=== PATIENT | male | born 1975 | race African-American/Black ===

== ENCOUNTER 2018-04-30 19:56 | Emergency (ER) | payer MEDICAID ==
[~2018-04-30] VITALS: Ht 180.3 cm; Wt 76.7 kg
--- NOTE | 2018-04-30 20:21 | Emergency Room Report ---
History of Present Illness General Chief Complaint: Pain Source: Caregiver Present Illness HPI 42-year-old male presents to the emergency department for demonstrating pain in the left foot while walking times one day. She presents with caregiver as he has developmental delay and is nonverbal. She has not received medication for his symptoms at this time no known fevers. reports Open wound to the lateral left ankle where caregiver states that he scratches often. History of present illness and ROS are limited due to patient mental status. Allergies: Coded Allergies: No Known Allergies (Unverified , 04/30/18) Patient History Past Medical History: see triage record Past Surgical History: none Pertinent Family History: none Reviewed Nursing Documentation: PMH: Agreed; PSxH: Agreed Nursing Documentation-PMH Past Medical History: No Stated History Review of Systems All Other Systems: limited - nonverbal, pt. AMS Physical Exam Vital Signs Date Time Temp Pulse Resp B/P (MAP) Pulse Ox O2 Delivery O2 Flow Rate FiO2 04/30/18 20:07 98.1 117 120/72 95 Room Air 98.1 Sp02 EP Interpretation: reviewed, normal General Appearance: no apparent distress, alert, GCS 15, non-toxic Head: normocephalic, atraumatic Eyes: bilateral eye normal inspection, bilateral eye PERRL ENT: hearing grossly normal, normal voice Neck: full range of motion Respiratory: chest non-tender, lungs clear, normal breath sounds, speaking full sentences Cardiovascular #1: regular rate, rhythm, no edema Musculoskeletal: back normal, normal range of motion, inflammation, tender - Lateral left foot, erythema, and mild swelling, scabbed circular wound noted. Neurologic: alert, oriented x3, responsive, motor strength/tone normal, sensory intact, speech normal, other - compensatory gait, grossly normal Psychiatric: judgement/insight normal Skin: warm/dry, well hydrated, other - scabbed old appearing circular wound on the left lateral ankle, with some erythema and warmth. Medical Decision Making PA Attestation Dr. dow is my supervising Physician whom patient management has been discussed with. Diagnostic Impression: Primary Impression: Cellulitis of ankle ER Course 42-year-old male presents to the emergency department for demonstrating pain in the left foot while walking times one day. She presents with caregiver as he has developmental delay and is nonverbal. She has not received medication for his symptoms at this time no known fevers. reports Open wound to the lateral left ankle where caregiver states that he scratches often. History of present illness and ROS are limited due to patient mental status. Ddx considered but are not limited to Fracture, dislocation, contusion, Sprain/ Strain/Spasm, cellulitis, abscess. Vital signs: are WNL, pt. is afebrile H&PE are most consistent with musculoskeletal injury will perform imaging to r/ o fractures/dislocations. ORDERS: - X-ray's Left FOOT and ANKLE - negative for fx, Dislocation, or significant soft tissue injury, per preliminary read in ED, and signed by ISIDRO Chambers , my supervising physician has reviewed, and agrees with my interpretation. ED INTERVENTIONS: - [ ] DISCHARGE: At this time pt. is stable for d/c to home. Will provide printed patient care instructions, and any necessary prescriptions. Care plan and follow up instructions have been discussed with the patient prior to discharge. Other X-Ray Diagnostic Results Other X-Ray Diagnostic Results #1: X-Ray ordered: Left foot # of Views/Limited Vs Complete: 3 View Indication: Pain EP Interpretation: Yes ISIDRO Xray: Interpretation reviewed, by supervising MD, and agrees with findings. Interpretation: no dislocation, no soft tissue swelling, no fractures Impression: No acute disease Electronically Signed by: Lilli Chambers PA-C Other X-Ray Diagnostic Results #2: X-Ray ordered: Left Ankle # of Views/Limited Vs Complete: 3 View Indication: Pain EP Interpretation: Yes ISIDRO Xray: Interpretation reviewed, by supervising MD, and agrees with findings. Interpretation: no dislocation, no soft tissue swelling, no fractures Impression: No acute disease Electronically Signed by: Lilli Chambers PA-C Last Vital Signs Date Time Temp Pulse Resp B/P (MAP) Pulse Ox O2 Delivery O2 Flow Rate FiO2 04/30/18 20:07 98.1 117 120/72 95 Room Air 98.1 Disposition: HOME, SELF-CARE Condition: Stable Scripts Acetaminophen* (TYLENOL EXTRA STRENGTH*) 500 Mg Tablet 500 MG ORAL Q6H, #20 TAB 0 Refills Prov: Lilli Chambers P.A. 04/30/18 Trimethoprim/Sulfamethoxazole 160/800* (BACTRIM DS TABLET*) 1 Each Tablet 1 TAB ORAL TWICE A DAY for 7 Days, #14 TAB Prov: Lilli Chambers P.APeace 04/30/18 Cephalexin* (KEFLEX*) 500 Mg Capsule 500 MG ORAL EVERY 12 HOURS for 7 Days, #14 CAP 0 Refills Prov: Lilli Chambers 04/30/18 Mupirocin* (MUPIROCIN*) 22 Gm Oint...g. 1 APPLIC TOPIC THREE TIMES A DAY, #22 GM Prov: Lilli Chambers 04/30/18 Patient Instructions: Abscess, [id number], Cellulitis Additional Instructions: Take medications as directed. Follow up with a Primary Care Provider in 3-5 days, even if your symptoms have resolved. --Please review list of primary care clinics, if you do not already have a primary care provider Return sooner to ED if new symptoms occur, or current symptoms become worse. - Please note that this Emergency Department Report was dictated using [employer] harvester operator technology software, occasionally this can lead to erroneous entry secondary to interpretation by the dictation equipment. Lilli Chambers Apr 30, 2018 20:20
[2018-04-30] MEDS ORDERED: CEPHALEXIN500 MG ORAL (21:09)
[2018-04-30] MEDS ORDERED: BACTRIM DS TAB1 EAC1 ORAL (21:09)
[2018-04-30] MEDS ORDERED: TYLENOL EXTRA500 MG ORAL (21:09)
[2018-04-30] MEDS ORDERED: MUPIROCIN22 GM TOPIC (21:09)
--- NOTE | 2018-04-30 21:17 | Diagnostic Imaging Report ---
EXAM: XR Left Ankle Complete, 3 or More Views CLINICAL HISTORY: PAIN TECHNIQUE: Frontal, lateral and oblique views of the left ankle. COMPARISON: No relevant prior studies available. FINDINGS: Bones/joints: No acute or suspicious findings. No acute fracture. No dislocation. Soft tissues: No acute or suspicious findings. Other findings: IMPRESSION: No acute findings.
--- NOTE | 2018-04-30 21:17 | Diagnostic Imaging Report ---
EXAM: XR Left Foot Complete, 3 or More Views CLINICAL HISTORY: PAIN TECHNIQUE: Frontal, lateral and oblique views of the left foot. COMPARISON: No relevant prior studies available. FINDINGS: Bones/joints: No acute or suspicious findings. No acute fracture. No dislocation. Soft tissues: No acute or suspicious findings. No radiopaque foreign body. IMPRESSION: Normal left foot x-rays.
[2018-04-30 21:30] VITALS: BP 120/72
== END 2018-04-30 21:31 | disposition home or self-care (01) ==
LOC: EMR 20:30
DX: L03.116 Cellulitis of left lower limb (principal)
CPT/HCPCS: 99284

== ENCOUNTER 2018-08-16 09:55 | Emergency (ER) | payer MEDICAID ==
[~2018-08-16] VITALS: Ht 182.9 cm; Wt 72.6 kg
[~2018-08-16 09:55] MED LIST: BACTRIM DS TAB1 EAC1 ORAL; CEPHALEXIN500 MG ORAL; MUPIROCIN22 GM TOPIC; TYLENOL EXTRA500 MG ORAL
[2018-08-16] MEDS ORDERED: Lidocaine 1% MPF 10mg/ml 5ml INJ ONE (10:45)
[2018-08-16 11:02] VITALS: BP 108/63
[2018-08-16] MEDS ORDERED: LORazepam Inj 2mg/ml 1ml ONE (12:43)
[2018-08-16] MEDS ORDERED: DiphenhydrAMINE 50mg/ml Inj IM ONE (12:45)
[2018-08-16] MEDS ORDERED: LORazepam Inj 2mg/ml 1ml IM ONE (12:45)
--- NOTE | 2018-08-16 13:40 | Emergency Room Report ---
History of Present Illness General Chief Complaint: Male Urogenital Problems Source: Patient Present Illness HPI 43 YO male presents to the ED c/o scrotal laceration. Pt brought In by caregiver. Patient has history of severe mental retardation. Caregiver states that patient has history of self mutilation and frequent masturbation. Patient has no history of suicide attempts. Patient was found masturbating with notable blood being visible. HPI and ROS is limited due to pt. baseline mental status. Does not appear to be in pain. Per caregiver not taking any blood thinning medications. Allergies: Coded Allergies: No Known Allergies (Unverified , 04/30/18) Patient History Past Medical History: see triage record Past Surgical History: none Pertinent Family History: none Reviewed Nursing Documentation: PMH: Agreed; PSxH: Agreed Nursing Documentation-PMH Past Medical History: No History, Except For Review of Systems All Other Systems: negative except mentioned in HPI Physical Exam Vital Signs Date Time Temp Pulse Resp B/P (MAP) Pulse Ox O2 Delivery O2 Flow Rate FiO2 08/16/18 09:59 97.6 114 18 108/63 97 Room Air 97.5 Sp02 EP Interpretation: reviewed, normal General Appearance: no apparent distress, alert, GCS 15, non-toxic Head: normocephalic, atraumatic ENT: hearing grossly normal, normal voice Neck: full range of motion Respiratory: lungs clear, normal breath sounds, speaking full sentences Cardiovascular #1: regular rate, rhythm Genitourinary: other - scrotal laceration approx 8 cm in length. Musculoskeletal: back normal, gait/station normal, normal range of motion, non- tender Neurologic: alert, responsive, motor strength/tone normal, sensory intact, speech normal, other - PT. has MR, grossly normal Psychiatric: other - Flat affect, Pt. has MR Skin: normal color, no rash, warm/dry, well hydrated, laceration - scrotal laceration approx 8 cm in length. Procedures Laceration/Wound Repair Laceration/Wound Repair : Consent: Verbal Wound Location: other - Scrotum Wound Explored: clean Irrigated w/ Saline (ccs): 500 Betadine Prep?: Yes Anesthesia: 1% Lidocaine Volume Anesthetic (ccs): 3 Wound Debrided: minimal Wound Repaired With: sutures Suture Size/Type: 4:0, other - Vycril Layer Closure?: No Sterile Dressing Applied?: Yes Splint Applied?: No Sling Applied?: No Patient Tolerated: Well Complications: None Progress Due to patients baseline mental status ( MR) pt. required mild sedative medication administration prior to procedure. Medical Decision Making PA Attestation Dr. Blas is my supervising Physician whom patient management has been discussed with. Diagnostic Impression: Primary Impression: Scrotal laceration Qualified Codes: S31.31XA - Laceration without foreign body of scrotum and testes, initial encounter ER Course 43 YO male presents to the ED c/o scrotal laceration. Pt brought In by caregiver. Patient has history of severe mental retardation. Caregiver states that patient has history of self mutilation and frequent masturbation. Patient has no history of suicide attempts. Patient was found masturbating with notable blood being visible. HPI and ROS is limited due to pt. baseline mental status. Ddx considered but are not limited to laceration, tendon injury, cellulitis, amputation, testicular laceration just to name a few. Vital signs: are WNL, pt. is afebrile H&PE are most consistent with: scrotal laceration approx 8 cm in length. ORDERS: none required at this time, the diagnosis is clinical ED INTERVENTIONS: - Ativan 2mg IM - Benadryl 50mg - The wound was copiously irrigated with normal saline, and explored for foreign body for which no FB was found. - pt. is anesthetized with 1%lidocaine - The wound was approximated and closed using 1 running subcutaneous vycril dissolving sutures. Discussed with patient: That we make every effort to approximate the laceration as best as we can so that scarring will be as cosmetically pleasing as possible with our limited cosmetic skill set in the Emergency dept. Regardless of our best efforts there will be scarring after laceration repair. The extent of scarring is unknown at this time. DISCHARGE: At this time pt. is stable for d/c to home. Will provide printed patient care instructions, and any necessary prescriptions. Care plan and follow up instructions have been discussed with the patient prior to discharge. Last Vital Signs Date Time Temp Pulse Resp B/P (MAP) Pulse Ox O2 Delivery O2 Flow Rate FiO2 08/16/18 11:02 97.5 86 18 108/63 97 Room Air 97.5 Disposition: HOME, SELF-CARE Condition: Stable Scripts Cephalexin* (KEFLEX*) 500 Mg Capsule 500 MG ORAL EVERY 12 HOURS for 7 Days, #14 CAP 0 Refills Prov: Lilli Chambers 08/16/18 Referrals: NON PHYSICIAN (PCP) Patient Instructions: Laceration Care, Adult, [id number] Additional Instructions: Take medications as directed. SUTURES WILL DISSOLVE, KEEP CLEAN AND DRY Follow up with a Primary Care Provider in 3-5 days, even if your symptoms have resolved. --Please review list of primary care clinics, if you do not already have a primary care provider Return sooner to ED if new symptoms occur, or current symptoms become worse. - Please note that this Emergency Department Report was dictated using [employer] mechanical designer technology software, occasionally this can lead to erroneous entry secondary to interpretation by the dictation equipment. Lilli Chambers Aug 16, 2018 13:40
[2018-08-16] MEDS ORDERED: CEPHALEXIN500 MG ORAL (13:44)
[2018-08-16 14:12] VITALS: BP 108/63
== END 2018-08-16 14:14 | disposition home or self-care (01) ==
LOC: EMR 10:48
DX: S31.31XA Laceration without foreign body of scrotum and testes, initial encounter (principal); X58.XXXA Exposure to other specified factors, initial encounter; Y93.89 Activity, other specified; Y92.89 Other specified places as the place of occurrence of the external cause; F72 Severe intellectual disabilities; F98.8 Other specified behavioral and emotional disorders with onset usually occurring in childhood and adolescence
CPT/HCPCS: 12004; 96372; 99283; J1200; Z7502

== ENCOUNTER 2019-10-15 11:03 | Emergency (ER) | payer MEDICAID ==
[~2019-10-15] VITALS: Ht 182.9 cm; Wt 76.7 kg
--- NOTE | 2019-10-15 11:13 | NUR ---
ED Nurse Note: PT AMBULATED TO ED WITH CAREGIVER D/T LEFT RED YOLI ON ULNAR SIDE OF WRIST. PT DENIES PAIN. NO SWELLING NOTED.
[2019-10-15 11:14] VITALS: BP 115/82
--- NOTE | 2019-10-15 11:21 | Emergency Room Report ---
History of Present Illness General Chief Complaint: Skin Rash/Abscess Source: Medical Record, Caregiver Present Illness HPI Patient presents with a skin lesion left outer wrist area. Area. It is unclear how this occurred. He was not exposed to any heat. The patient has some behaviors of scraping himself and scratching himself. There is no reported fever. The patient has developmental delay and is unable to give a history himself. There is no reported trauma. Patient treated for scrotal laceration July 2018. H/O developmental delay. Allergies: Coded Allergies: No Known Allergies (Unverified , 04/30/18) Patient History Limited by: medical condition - developmental delay Past Medical History: see triage record, old chart reviewed, other - developmental delay Social History: Denies: smoking, alcohol use, drug use Social History Narrative assisted living Reviewed Nursing Documentation: PMH: Agreed; PSxH: Agreed Review of Systems All Other Systems: limited Physical Exam Vital Signs Date Time Temp Pulse Resp B/P (MAP) Pulse Ox O2 Delivery O2 Flow Rate FiO2 10/15/19 11:07 98.2 103 20 115/82 (93) 96 Room Air Sp02 EP Interpretation: reviewed, normal General Appearance: well appearing, no apparent distress, other - Not responding to external sternal stimuli Head: normocephalic, atraumatic Eyes: bilateral eye normal inspection, bilateral eye PERRL ENT: moist mucus membranes Neck: supple Respiratory: normal inspection Cardiovascular #1: regular rate, rhythm Cardiovascular #2: 2+ radial (L) - Good capillary refill Gastrointestinal: normal inspection Musculoskeletal: digits/nails normal, normal range of motion, other - No deformity Neurologic: alert Psychiatric: depressed affect Skin: warm/dry, abrasions - left forearm Medical Decision Making Diagnostic Impression: Primary Impression: Abrasion ER Course Patient presents with lesion left outer wrist. Differential includes abrasion, burn, cellulitis amongst others. There is no evidence of infection at this time. The superficial layer of skin seems to be abraded. By history the tetanus is up-to-date. At this time local care is needed. Bacitracin is applied. No suspicion of foul play. Discussion of treatment plan with supervisor hand workers. Patient stable to stable for outpatient observation and treatment. Last Vital Signs Date Time Temp Pulse Resp B/P (MAP) Pulse Ox O2 Delivery O2 Flow Rate FiO2 10/15/19 11:30 98.5 98 20 121/88 100 Room Air Status: improved Disposition: ASSISTED LIVING Condition: Improved Scripts Bacitracin (Bacitracin) 28.4 Gm Oint...g. 1 APPLIC TOPIC BID, #20 GM Prov: Jian Arthur MD 10/15/19 Jian Arthur MD Oct 15, 2019 11:21
[2019-10-15] MEDS ORDERED: BACITRACIN15 GM TOPIC (11:22)
[2019-10-15 11:30] VITALS: BP 121/88
[2019-10-15] MEDS ORDERED: Bacitracin Oint UD TOPIC ONE (11:30)
--- NOTE | 2019-10-15 11:30 | NUR ---
ED Nurse Note: PT DC PER ERMD ORDER. BACITRACIN APPLIED TO SKIN TEAR. PT ACCOMPANIED BY CAREGIVER HOME. PT CAREGIVER WAS GIVEN PRESCRIPTION AND DC INSTRUCTIONS; CAREGIVER WAS ABLE TO VERBALIZE UNDERSTANDING.
== END 2019-10-15 11:30 | disposition home or self-care (01) ==
LOC: EMR 11:30
DX: S60.812A Abrasion of left wrist, initial encounter (principal); X58.XXXA Exposure to other specified factors, initial encounter; Y92.9 Unspecified place or not applicable; R62.50 Unspecified lack of expected normal physiological development in childhood
CPT/HCPCS: 99282